=== PATIENT | male | born 1950 | race Two or more races ===

== ENCOUNTER 2018-09-22 12:17 | Inpatient (IN) | payer BC, OTHER ==
[2018-09-22 12:59] VITALS: BMI 36.3
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
[2018-09-22] MEDS ORDERED: MAGNESIUM HYDROX 2400MG/30ML ORAL SUSPENSION 30 ML CUP PO PRN (15:26)
[2018-09-22] MEDS ORDERED: hydrOXYzine PAMOATE 25 MG CAPSULE (FP) PO PRN (15:26)
[2018-09-22] MEDS ORDERED: MENTHOL/PHENOL 1 EACH UD MM PRN (15:26)
[2018-09-22] MEDS ORDERED: IBUPROFEN 400 MG TABLET (FP) PO PRN (15:26)
[2018-09-22] MEDS ORDERED: MAGNESIUM CITRATE 300 ML BOTTLE PO PRN (15:26)
[2018-09-22] MEDS ORDERED: MELATONIN 5 MG TABLETS PO PRN (15:26)
[2018-09-22] MEDS ORDERED: BISMUTH SUBSALICYLATE 524 MG/30 ML UD PO PRN (15:26)
[2018-09-22] MEDS ORDERED: ACETAMINOPHEN 325 MG TABLET (FP) PO PRN (15:26)
[2018-09-22] MEDS ORDERED: MAG HYDROX/AL HYDROX/SIMETH 30 ML UNIT-DOSE CUP PO PRN (15:26)
[2018-09-22] MEDS ORDERED: guaiFENesin 200 MG/10 ML 10 ML UNIT-DOSE CUPS PO PRN (15:26)
[2018-09-22] MEDS ORDERED: POLYETHYLENE GLYCOL 3350 119 GM BTL PO PRN (15:30)
[2018-09-22] MEDS ORDERED: chlordiazePOXIDE HCL 25 MG CAPSULE PO ONE (19:02)
[2018-09-22] MEDS ORDERED: chlordiazePOXIDE HCL 25 MG CAPSULE PO PRN (19:02)
[2018-09-22] MEDS ORDERED: CILOSTAZOL 100 MG TABLET PO SCH (22:00)
[2018-09-22] MEDS: chlordiazePOXIDE HCL 25 MG CAPSULE PO SCH (22:25)
[2018-09-22] MEDS: APIXABAN 5 MG TABLET PO SCH (22:25)
[2018-09-22] MEDS: SENNOSIDES/DOCUSATE COMBO (SENNA PLUS) TABLET (UD) PO SCH (22:26)
[2018-09-22] MEDS: DOCUSATE SODIUM 100 MG CAPSULE (FP) PO SCH (22:26)
[2018-09-22] MEDS: THIAMINE HCL 100 MG TABLET (FP) PO SCH (22:26)
[2018-09-22] MEDS: HYDROXYUREA 500 MG CAPSULE PO SCH (22:27)
[2018-09-22] MEDS: TOLNAFTATE 1% CREAM 15 GM TUBE TP SCH (22:29)
[2018-09-23] MEDS: chlordiazePOXIDE HCL 25 MG CAPSULE PO SCH ×4 (06:01→22:43)
--- NOTE | 2018-09-23 09:35 | PN ---
S CIWA - CIWA Score Nausea/Vomitin-No Nausea/No Vomiting Muscle Tremors: 4-Moderate,w/Arms Extend Anxiety: 3 Agitation: 2 Paroxysmal Sweats: 3 Orientation: 0-Oriented Tacttile Disturbances: 0-None Auditory Disturbances: 0-None Visual Disturbances: 0-None Headache: 0-None Present CIWA-Ar Total Score: 12 BHS Progress Note (SOAP) Subjective: Heartburn nasal congestion tremors sweats Objective: 09/23/18 09:31 A & O x 3 Gait steady Vital Signs Temperature 97.7 F 09/23/18 09:19 Pulse Rate 77 09/23/18 09:19 Respiratory Rate 18 09/23/18 09:19 Blood Pressure 132/89 09/23/18 09:19 O2 Sat by Pulse Oximetry (%) labs pending Assessment: 09/23/18 09:34 withdrawal sx Plan: continue detox Increase hydration Protonix and fluticasone for heartburn and nasal congestion respectively
[2018-09-23] MEDS ORDERED: LOSARTAN POTASSIUM 50 MG TABLET (FP) PO SCH (10:00)
[2018-09-23] MEDS ORDERED: HYDROCHLOROTHIAZIDE 25 MG TABLET (FP) PO SCH (10:00)
[2018-09-23] MEDS ORDERED: PRENATAL VITAMINS W/ FOLIC ACID TABLET (FP) PO SCH (10:00)
[2018-09-23] MEDS ORDERED: ASPIRIN 81 MG CHEWABLE TABLETS PO SCH (10:00)
[2018-09-23] MEDS ORDERED: amLODIPine BESYLATE 10 MG TABLET (FP) PO SCH (10:00)
[2018-09-23] MEDS ORDERED: FLUTICASONE PROP 0.05% 16 GM NASAL SPRAY NS SCH (10:00)
[2018-09-23 10:58] LABS: ALBUMIN 3.6 g/dl (3.4-5.0); ALK PHOS 51 U/L (45-117); ANION GAP 6 MMOL/L (8-16); BILIRUBIN,TOTAL 0.7 mg/dL (0.2-1); BLOOD UREA NITROGEN 12 mg/dL (7-18); CALCIUM 8.5 mg/dL (8.5-10.1); CHLORIDE 104 mmol/L (98-107); CO2 27 mmol/L (21-32); CREATININE 0.9 mg/dL (0.55-1.3); GLUCOSE,RANDOM 113 mg/dL (74-106); POTASSIUM 4.1 mmol/L (3.5-5.1); SGOT/AST 39 U/L (15-37); SGPT/ALT 59 U/L (13-61); SODIUM 136 mmol/L (136-145); TOT PROT 6.8 g/dl (6.4-8.2)
[2018-09-23] MEDS: APIXABAN 5 MG TABLET PO SCH ×2 (11:00→22:43)
[2018-09-23] MEDS: SENNOSIDES/DOCUSATE COMBO (SENNA PLUS) TABLET (UD) PO SCH ×2 (11:00→22:43)
[2018-09-23] MEDS: TOLNAFTATE 1% CREAM 15 GM TUBE TP SCH ×2 (11:00→22:46)
[2018-09-23] MEDS: PANTOPRAZOLE 40 MG TABLET (FP) PO SCH ×2 (11:00→22:46)
[2018-09-23 11:19] LABS: HEMATOCRIT 37.3 % (35.4-49); HEMOGLOBIN 13.1 GM/dL (11.7-16.9); MCH 33.5 pg (25.7-33.7); MCHC 35.1 g/dl (32.0-35.9); MEAN CELL VOLUME 95.5 fl (80-96); MEAN PLT VOLUME 8.2 fl (7.5-11.1); PLATELET COUNT 356 K/MM3 (134-434); RDW 17.3 % (11.9-15.9); WHITE BLOOD COUNT 3.8 K/mm3 (4.0-10.0)
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
--- NOTE | 2018-09-23 16:40 | EKG ---
Test Reason : Blood Pressure : / mmHG Vent. Rate : 072 BPM Atrial Rate : 072 BPM P-R Int : 166 ms QRS Dur : 090 ms QT Int : 404 ms P-R-T Axes : 068 053 057 degrees QTc Int : 442 ms NORMAL SINUS RHYTHM NORMAL ECG NO PREVIOUS ECGS AVAILABLE Confirmed by YOVANY KO, JANUSZ ([id number]) on 09/23/2018 4:39:48 PM Referred By: Confirmed By:JANUSZ PEDROZA MD
[2018-09-23] MEDS: THIAMINE HCL 100 MG TABLET (FP) PO SCH (22:43)
[2018-09-23] MEDS: DOCUSATE SODIUM 100 MG CAPSULE (FP) PO SCH (22:43)
[2018-09-23] MEDS: HYDROXYUREA 500 MG CAPSULE PO SCH (22:43)
[2018-09-24] MEDS: chlordiazePOXIDE HCL 25 MG CAPSULE PO SCH (05:22)
[2018-09-24 06:16] VITALS: BP 132/89; PULSE 77; TEMP 97.3
--- NOTE | 2018-09-24 16:24 | DS ---
[facility] Detox Discharge Summary Admission Date: 09/22/18 - History Present History: Alcohol Dependence Additional Comments: Patient demanded to leave AMA despite encouragement from staff to complete detox. Patient instructed to call [phone] if withdrawal symptoms or feeling sick. Patient instructed to see his PCP within 3 days. - Physical Exam Results Vital Signs: Vital Signs Temperature 97.3 F L 09/24/18 06:00 Pulse Rate 77 09/24/18 06:00 Respiratory Rate 18 09/24/18 06:00 Blood Pressure 132/89 09/24/18 06:00 O2 Sat by Pulse Oximetry (%) Pertinent Admission Physical Exam Findings: Withdrawal symptoms Laboratory Tests 09/23/18 09/23/18 09/23/18 07:30 07:30 07:30 WBC 3.8 L RBC 3.90 L Hgb 13.1 Hct 37.3 MCV 95.5 MCH 33.5 MCHC 35.1 RDW 17.3 H Plt Count 356 D MPV 8.2 Sodium 136 Potassium 4.1 Chloride 104 Carbon Dioxide 27 Anion Gap 6 L BUN 12 Creatinine 0.9 Creat Clearance w eGFR 83.92 Random Glucose 113 H Calcium 8.5 Total Bilirubin 0.7 AST 39 H ALT 59 Alkaline Phosphatase 51 Total Protein 6.8 Albumin 3.6 RPR Titer Nonreactive Labs reviewed - Medication Discharge Medications: Ambulatory Orders Amlodipine Besylate 10 mg PO DAILY 11/05/15 Aspirin [ASA -] 81 mg PO DAILY 11/05/15 Cilostazol 100 mg PO BID 11/05/15 Docusate Sodium [Dulcolax Stool Softener] 300 mg PO HS 11/05/15 Hydrochlorothiazide [Hctz -] 25 mg PO DAILY 11/05/15 Hydroxyurea [Hydrea -] 500 mg PO HS 11/05/15 Losartan Potassium 100 mg PO DAILY 11/05/15 Quetiapine Fumarate [Seroquel -] 300 mg PO HS 11/05/15 Quetiapine Fumarate [Seroquel] 100 mg PO DAILY 11/05/15 Quetiapine Fumarate [Seroquel] 100 tab PO DAILY 11/05/15 Ranitidine HCl 150 mg PO BID 11/05/15 Sennosides/Docusate Sodium [Senna Laxative Tablet] 1 each PO BID 11/05/15 Trazodone HCl 200 mg PO HS 11/05/15 Benztropine Mesylate [Cogentin -] 1 mg PO BID #60 tablet 11/06/15 Quetiapine Fumarate [Seroquel -] 300 mg PO HS #30 tab 11/06/15 Apixaban [Eliquis -] 5 mg PO BID 09/22/18 Melatonin 3 mg PO HS 09/22/18 Olanzapine [ZyPREXA -] 10 mg PO BID 09/22/18 Omeprazole 20 mg PO BID 09/22/18 Polyethylene Glycol 3350 [Miralax 119 gm Btl -] 17 gm PO PRN 09/22/18 Quetiapine Fumarate [Seroquel] 100 mg PO DAILY 09/22/18 traZODone HCL [Desyrel -] 400 mg PO HS 09/22/18 - Diagnosis (1) Nicotine dependence Status: Chronic (2) Alcohol dependence with uncomplicated withdrawal Status: Acute (3) Bipolar disorder Status: Chronic Qualifiers: Current episode severity: unspecified (4) Constipation Status: Chronic Qualifiers: Constipation type: unspecified constipation type Qualified Code(s): K59.00 - Constipation, unspecified (5) Gastroesophageal reflux Status: Chronic Qualifiers: Esophagitis presence: without esophagitis Qualified Code(s): K21.9 - Gastro -esophageal reflux disease without esophagitis (6) Hypertension Status: Chronic Qualifiers: Hypertension type: essential hypertension Qualified Code(s): I10 - Essential (primary) hypertension (7) History of pulmonary embolism Status: Chronic - AMA Did Patient Leave Against Medical Advice: Yes (Instructed to call 911 if feeling sick or withdrawal symptoms)
[2018-09-24] MEDS ORDERED: chlordiazePOXIDE HCL 10 MG CAPSULE PO PRN (23:00)
[2018-09-24] MEDS ORDERED: chlordiazePOXIDE HCL 10 MG CAPSULE PO SCH (23:00)
[2018-09-25] MEDS ORDERED: chlordiazePOXIDE HCL 10 MG CAPSULE PO SCH (23:00)
== END 2018-09-24 10:00 | disposition left against medical advice (07) | DRG 894 ==
LOC: YASAS 12:17 → Y6N 16:36
PROVIDERS: ADMIT Surgery; ATTEND Surgery
PROC: HZ2ZZZZ Detoxification Services for Substance Abuse Treatment (ICD-10-PCS; principal; 2018-09-22)
DX: F10.230 Alcohol dependence with withdrawal, uncomplicated (principal); F17.210 Nicotine dependence, cigarettes, uncomplicated; F25.9 Schizoaffective disorder, unspecified; F31.9 Bipolar disorder, unspecified; I10 Essential (primary) hypertension; E78.5 Hyperlipidemia, unspecified; K21.9 Gastro-esophageal reflux disease without esophagitis; K59.00 Constipation, unspecified; Z86.711 Personal history of pulmonary embolism; Z79.01 Long term (current) use of anticoagulants; Z91.19 Patient's noncompliance with other medical treatment and regimen
CPT/HCPCS: 36415; 80053; 85027; 86593; 93005; 93010; J8999